=== PATIENT | male | born 1950 | race Caucasian/White ===

== ENCOUNTER 2017-08-04 07:11 | Inpatient (IN) | payer MEDICARE, MEDICAID ==
[~2017-08-04] VITALS: Ht 175.3 cm; Wt 89.6 kg
[2017-08-04] MEDS ORDERED: IPRATROPIUM/ALBUTEROL SULFATE 3 ML SOLUTION IH ONE ×2 (07:49→08:27)
[2017-08-04] MEDS ORDERED: METHYLPREDNISOLONE SOD SUCC 125MG/2ML VIAL ONE (07:58)
[2017-08-04] MEDS ORDERED: SODIUM CHLORIDE 0.9% 1000ML 3,000 ML IV ONE (07:59)
[2017-08-04] MEDS ORDERED: AZITHROMYCIN 500MG+NS 250ML 250 ML IV ONE (07:59)
[2017-08-04] MEDS ORDERED: CEFTRIAXONE SODIUM 1 GM ONE (07:59)
[2017-08-04] MEDS ORDERED: IBUPROFEN 600 MG TABLET ONE (08:00)
[2017-08-04 08:05] LABS: BASOPHILS % (AUTO) 0.4 % (0.0-5.0); EOSINOPHILS % (AUTO) 0.1 % (0.0-8.0); HEMATOCRIT 47.3 % (42-54); LYMPHOCYTES % (AUTO) 2.8 % (21.0-51.0); MEAN CORPUSCULAR HEMOGLOBIN 34.5 pg (27.0-33.0); MEAN CORPUSCULAR HGB CONC 34.6 g/dL (32.0-36.0); MEAN CORPUSCULAR VOLUME 99.7 fL (79-99); MONOCYTES % (AUTO) 6.6 % (3.0-13.0); NEUTROPHILS % (AUTO) 90.1 % (40.0-77.0); PLATELET COUNT (AUTO) 197 K/uL (130-400); RED BLOOD CELL COUNT(AUTO) 4.74 MIL/uL (4.50-6.20); RED CELL DISTRIBUTION WIDTH 12.6 % (11.0-15.5)
[2017-08-04 08:16] LABS: INR 0.97 (0.85-1.15); PARTIAL THROMBOPLASTIN TIME 29.4 SEC (26.3-35.5); PROTHROMBIN TIME 10.2 SEC (9.6-11.6)
[2017-08-04 08:30] LABS: CREATININE 0.9 mg/dL (0.5-1.5); POTASSIUM 3.4 mmol/L (3.5-5.1)
[2017-08-04 08:40] LABS: B-TYPE NATRIURETIC PEPTIDE 155 pg/mL (0-100)
[2017-08-04] MEDS ORDERED: ONDANSETRON HCL MDV 20ML 2 MG/ML VIAL ONE (08:41)
[2017-08-04] MEDS ORDERED: MORPHINE SULFATE 4 MG/1ML SYG ONE (08:42)
[2017-08-04 08:45] LABS: ABG BASE EXCESS -2.3 mmol/L (-2.0-3.0); ABG HCO3 21.8 mmol/L (21.0-28.0); ABG OXYGEN SATURATION 92.7 % (95.0-99.0); ABG PCO2 36 mmHg (35-48)
[2017-08-04] MEDS ORDERED: CEFTRIAXONE SODIUM 1 GM IVP SCH (08:45)
[2017-08-04] MEDS ORDERED: ACETAMINOPHEN 325 MG TAB PO PRN (08:45)
[2017-08-04 09:00] LABS: ALBUMIN 3.5 g/dL (3.5-5.0); BILIRUBIN,TOTAL 0.7 mg/dL (0.2-1.0); CREATINE KINASE MB 0.5 ng/mL (0.5-3.6); TOTAL PROTEIN, SERUM 7.4 g/dL (6.0-8.3)
[2017-08-04] MEDS ORDERED: AZITHROMYCIN 500MG+NS 250ML 250 ML IV SCH (09:00)
[2017-08-04] MEDS ORDERED: POTASSIUM BICARB/CIT AC 25 MEQ TABLET.EFF ONE (09:11)
[2017-08-04 09:40] VITALS: BP 110/57
[2017-08-04] MEDS: IPRATROPIUM/ALBUTEROL SULFATE 3 ML SOLUTION IH SCH ×4 (10:00→22:43)
[2017-08-04 12:37] VITALS: BP 110/62
[2017-08-04] MEDS: LEVOFLOXACIN 500 MG/D5W 100 ML 100 ML IV SCH (13:30)
[2017-08-04] MEDS ORDERED: MORPHINE SULFATE 4 MG/1ML SYG IM PRN (13:30)
[2017-08-04 16:00] VITALS: BP 114/72
[2017-08-04] MEDS ORDERED: HYDRALAZINE HCL 20 MG/ML VIAL IV PRN (16:30)
[2017-08-04] MEDS ORDERED: ONDANSETRON HCL 4 MG/2 ML VIAL IVP PRN (16:30)
[2017-08-04] MEDS ORDERED: LACTULOSE 20 GM/30 ML UDCUP PO PRN (16:30)
[2017-08-04] MEDS: METHYLPREDNISOLONE SOD SUCC 40MG/ML 1ML IVP SCH ×2 (16:54→23:37)
[2017-08-04 20:00] VITALS: BP 101/64
[2017-08-04] MEDS ORDERED: ONDANSETRON HCL MDV 20ML 2 MG/ML VIAL IVP PRN (21:41)
[2017-08-04 23:27] VITALS: BP 99/56
[2017-08-05] MEDS: IPRATROPIUM/ALBUTEROL SULFATE 3 ML SOLUTION IH SCH ×6 (01:39→22:13)
[2017-08-05 04:00] VITALS: BP 109/57
[2017-08-05 04:29] LABS: ABG BASE EXCESS -0.8 mmol/L (-2.0-3.0); ABG HCO3 24.2 mmol/L (21.0-28.0); ABG OXYGEN SATURATION 96.9 % (95.0-99.0); ABG PCO2 41 mmHg (35-48)
[2017-08-05 04:43] LABS: HEMATOCRIT 42.3 % (42-54); MEAN CORPUSCULAR HEMOGLOBIN 34.6 pg (27.0-33.0); MEAN CORPUSCULAR HGB CONC 34.2 g/dL (32.0-36.0); MEAN CORPUSCULAR VOLUME 101.2 fL (79-99); PLATELET COUNT (AUTO) 172 K/uL (130-400); RED BLOOD CELL COUNT(AUTO) 4.18 MIL/uL (4.50-6.20)
[2017-08-05 04:47] LABS: CREATININE 0.8 mg/dL (0.5-1.5); POTASSIUM 3.9 mmol/L (3.5-5.1)
[2017-08-05 07:00] LABS: APPEARANCE,URINE CLEAR (CLEAR); BILIRUBIN,URINE NEGATIVE (NEGATIVE); COLOR,URINE YELLOW (YELLOW); GLUCOSE, URINE (UA) 250 mg/dL (NEGATIVE); KETONES,URINE NEGATIVE (NEGATIVE); LEUKOCYTE ESTERASE ,URINE NEGATIVE (NEGATIVE); NITRATE,URINE NEGATIVE (NEGATIVE); OCCULT BLOOD,URINE TRACE-INTACT (NEGATIVE); PROTEIN,URINE 30 (NEGATIVE); UROBILINOGEN,URINE 0.2 mg/dL (0.2-1.0)
[2017-08-05 07:21] LABS: BACTERIA,URINE None Seen /HPF (None Seen); RBC,URINE 0-1 /HPF (0-1); WBC,URINE None Seen /HPF (0-1)
[2017-08-05 08:00] VITALS: BP 111/66
[2017-08-05] MEDS: PANTOPRAZOLE SODIUM 40 MG TABLET.DR PO SCH (10:43)
[2017-08-05] MEDS: METHYLPREDNISOLONE SOD SUCC 40MG/ML 1ML IVP SCH ×2 (10:43→20:25)
[2017-08-05] MEDS: LEVOFLOXACIN 500 MG/D5W 100 ML 100 ML IV SCH (10:51)
[2017-08-05 11:00] VITALS: BP 126/73
[2017-08-05] MEDS ORDERED: ALBU90AE IH (11:13)
[2017-08-05] MEDS ORDERED: HYDR-4060 PO (11:13)
[2017-08-05] MEDS ORDERED: TRAZ-185 PO (11:13)
[2017-08-05] MEDS ORDERED: UMEC1DIS IH (11:13)
[2017-08-05] MEDS ORDERED: CEFEPIME 1GM+NS 50ML 50 ML IV SCH (11:15)
[2017-08-05] MEDS ORDERED: HYDROCODONE/ACETAMINOPHEN 5/325 MG TAB PO PRN (12:15)
[2017-08-05] MEDS ORDERED: NON-FORMULARY MEDICATION 1 EACH (Albuterol Sulfate (Proair Respiclick) 2 PUFF) IH PRN (12:15)
[2017-08-05 13:27] LABS: HEMATOCRIT 41.7 % (42-54); MEAN CORPUSCULAR HEMOGLOBIN 35.1 pg (27.0-33.0); MEAN CORPUSCULAR HGB CONC 34.8 g/dL (32.0-36.0); MEAN CORPUSCULAR VOLUME 100.9 fL (79-99); PLATELET COUNT (AUTO) 196 K/uL (130-400); RED BLOOD CELL COUNT(AUTO) 4.14 MIL/uL (4.50-6.20); RED CELL DISTRIBUTION WIDTH 12.9 % (11.0-15.5); WHITE BLOOD COUNT (AUTO) 23.1 K/uL (4.8-10.8)
[2017-08-05 13:33] LABS: CREATININE 1.1 mg/dL (0.5-1.5); POTASSIUM 3.6 mmol/L (3.5-5.1)
[2017-08-05] MEDS: CEFEPIME HCL 1 GM VIAL IVP SCH ×2 (13:48→20:24)
[2017-08-05] MEDS ORDERED: FOLIC ACID 1 MG TABLET PO SCH (15:00)
[2017-08-05] MEDS ORDERED: CHLORDIAZEPOXIDE HCL 25 MG CAP PO PRN (15:00)
[2017-08-05] MEDS ORDERED: LORAZEPAM 0.5 MG TABLET PO PRN (15:00)
[2017-08-05 16:00] VITALS: BP 140/76
[2017-08-05] MEDS: HYDROCODONE/ACETAMINOPHEN 5/325 MG TAB PO PRN (18:09)
[2017-08-05 20:09] VITALS: BP 126/60
[2017-08-05] MEDS: TRAZODONE HCL 50 MG TAB PO SCH (20:24)
[2017-08-05 23:41] VITALS: BP 121/69
[2017-08-06] MEDS: IPRATROPIUM/ALBUTEROL SULFATE 3 ML SOLUTION IH SCH ×6 (02:23→22:26)
[2017-08-06 04:00] VITALS: BP 130/71
[2017-08-06] MEDS: CEFEPIME HCL 1 GM VIAL IVP SCH ×3 (04:10→20:44)
[2017-08-06] MEDS: HYDROCODONE/ACETAMINOPHEN 5/325 MG TAB PO PRN ×3 (08:24→19:45)
[2017-08-06] MEDS: METHYLPREDNISOLONE SOD SUCC 40MG/ML 1ML IVP SCH ×2 (08:24→20:44)
[2017-08-06] MEDS: PANTOPRAZOLE SODIUM 40 MG TABLET.DR PO SCH (08:24)
[2017-08-06] MEDS: THIAMINE HCL 100 MG TABLET PO SCH (08:24)
[2017-08-06] MEDS: LEVOFLOXACIN 500 MG/D5W 100 ML 100 ML IV SCH (08:25)
[2017-08-06] MEDS ORDERED: NON-FORMULARY MEDICATION 1 EACH (Umeclidinium Brm/Vilanterol Tr (Anoro Ellipta 62.5-25 Mcg IH SCH (09:00)
[2017-08-06] MEDS: MULTIVITS,STRESS FORMULA/ZINC 1 TABLET PO SCH (09:00)
[2017-08-06 11:00] VITALS: BP 130/62
[2017-08-06 16:07] VITALS: BP 136/76
[2017-08-06 19:18] VITALS: BP 130/62
[2017-08-06] MEDS: TRAZODONE HCL 50 MG TAB PO SCH (19:45)
[2017-08-07 00:03] VITALS: BP 143/85
[2017-08-07] MEDS: IPRATROPIUM/ALBUTEROL SULFATE 3 ML SOLUTION IH SCH ×3 (01:25→09:40)
[2017-08-07] MEDS: GUAIFENESIN-CODEINE 5 ML SYRUP PO PRN ×2 (01:53→07:40)
[2017-08-07 03:49] VITALS: BP 129/58
[2017-08-07 04:00] LABS: BASOPHILS % (AUTO) 0.1 % (0.0-5.0); EOSINOPHILS % (AUTO) 0.2 % (0.0-8.0); HEMATOCRIT 38.7 % (42-54); LYMPHOCYTES % (AUTO) 4.4 % (21.0-51.0); MEAN CORPUSCULAR HEMOGLOBIN 35.4 pg (27.0-33.0); MEAN CORPUSCULAR HGB CONC 35.2 g/dL (32.0-36.0); MEAN CORPUSCULAR VOLUME 100.8 fL (79-99); MONOCYTES % (AUTO) 4.8 % (3.0-13.0); NEUTROPHILS % (AUTO) 90.5 % (40.0-77.0); PLATELET COUNT (AUTO) 218 K/uL (130-400); RED BLOOD CELL COUNT(AUTO) 3.84 MIL/uL (4.50-6.20); WHITE BLOOD COUNT (AUTO) 16.3 K/uL (4.8-10.8)
[2017-08-07 04:02] LABS: CREATININE 0.8 mg/dL (0.5-1.5)
[2017-08-07] MEDS: CEFEPIME HCL 1 GM VIAL IVP SCH (04:35)
[2017-08-07] MEDS: THIAMINE HCL 100 MG TABLET PO SCH (07:39)
[2017-08-07] MEDS: METHYLPREDNISOLONE SOD SUCC 40MG/ML 1ML IVP SCH (07:40)
[2017-08-07] MEDS: PANTOPRAZOLE SODIUM 40 MG TABLET.DR PO SCH (07:40)
[2017-08-07] MEDS: MULTIVITS,STRESS FORMULA/ZINC 1 TABLET PO SCH (07:40)
[2017-08-07] MEDS: LEVOFLOXACIN 500 MG/D5W 100 ML 100 ML IV SCH (07:40)
[2017-08-07] MEDS: HYDROCODONE/ACETAMINOPHEN 5/325 MG TAB PO PRN (07:41)
[2017-08-07 07:46] VITALS: BP 125/67
[2017-08-07 11:06] VITALS: BP 155/83
[2017-08-07] MEDS ORDERED: LEVO750T46 PO (11:19)
[2017-08-07] MEDS ORDERED: AZIT500T4 PO (11:26)
[2017-08-07] MEDS ORDERED: PRED20TA3 PO (12:03)
== END 2017-08-07 13:00 | disposition home or self-care (01) | DRG 871 ==
LOC: EDH 07:11 → EDHIP 08:25 → 2DH 09:18 → 2AH 17:56
PROVIDERS: ADMIT Internal Medicine Nephrology; ATTEND Internal Medicine Nephrology
DX: A41.9 Sepsis, unspecified organism (principal); J18.9 Pneumonia, unspecified organism; J96.01 Acute respiratory failure with hypoxia; B19.10 Unspecified viral hepatitis B without hepatic coma; F10.239 Alcohol dependence with withdrawal, unspecified; J44.0 Chronic obstructive pulmonary disease with (acute) lower respiratory infection; J44.1 Chronic obstructive pulmonary disease with (acute) exacerbation; R65.20 Severe sepsis without septic shock; B19.20 Unspecified viral hepatitis C without hepatic coma; E66.9 Obesity, unspecified; F12.90 Cannabis use, unspecified, uncomplicated; F17.210 Nicotine dependence, cigarettes, uncomplicated; G89.29 Other chronic pain; Z68.29 Body mass index [BMI] 29.0-29.9, adult
CPT/HCPCS: 36415; 36600; 71045; 71250; 80048; 80053; 81001; 82550; 82553; 82803; 83605; 83874; 83880; 84484; 85025; 85027; 85610; 85730; 86480; 86701; 87040; 87071; 87077; 87088; 87116; 87186; 87205; 87206; 87390; 87633; 87804; 93005; 94640; 94664; 99291; A4218; J0456; J0692; J0696; J1956; J2270; J2920; J2930; J7030